=== PATIENT | male | born 1945 | race African-American/Black ===

== ENCOUNTER 2020-01-26 10:39 | Emergency (ER) | payer OTHER ==
[2020-01-26 10:47] VITALS: BP 152/72
--- NOTE | 2020-01-26 10:53 | ER Document Report ---
HPI - HPI Time Seen by Provider: 01/26/20 10:47 Pain Level: 4 - CONSTITUTIONAL Notes: 74-year-old male who is a dialysis patient presents emergency room with complaints of right hand and right wrist pain after a FOOSH injury at 930 this morning. Patient states that he was picking up a bag and lost his bearings and fell and broke his fall with his right hand and right wrist. Denies any other area of injury. Denies hitting head or change in level consciousness. Has not tried any [id number]-[id number] medications. Reports pain is 1 out of 5. No qzvd-frc-qehetvw medications have been tried. No icing or heat. Denies fevers, chills, chest pain,palpitations, shortness of breath, dyspnea, nausea, vomiting, diarrhea, abdominal pain, hematuria,blurred vision, double vision, loss of vision, speech changes, LH, dizziness, syncope, headaches, wheezing, ST, URI, neck pain, weakness, bowel or bladder dysfunction, saddle anesthesia, numbness or tingling in bilateral upper or lower extremities equally, muscle paralysis, weakness in bilateral upper or lower extremities equally or rash. Denies IV drug use. MEDICATIONS: I agree with the patient medications as charted by the RN. ALLERGIES: I agree with the allergies as charted by the RN. PAST MEDICAL HISTORY/PAST SURGICAL HISTORY: Reviewed and agree as charted by RN. SOCIAL HISTORY: Reviewed and agree as charted by RN. FAMILY HISTORY: No significant familial comorbid conditions directly related to patient complaint EXAM: Reviewed vital signs as charted by RN. REVIEW OF SYSTEMS:reviewed vital signs by RN CONSTITUTIONAL : Denies fever, chills, or sweats. Denies recent illness. EENT: Denies eye, ear, throat, or mouth pain or symptoms. Denies nasal or sinus congestion or discharge. Denies throat, tongue, or mouth swelling or difficulty swallowing. CARDIOVASCULAR: Denies chest pain. Denies palpitations or racing or irregular heart beat. Denies ankle edema. RESPIRATORY: Denies cough, cold, or chest congestion. Denies shortness of breath, difficulty breathing, or wheezing. GASTROINTESTINAL: Denies abdominal pain or distention. Denies nausea, vomiting, or diarrhea. Denies blood in vomitus, stools, or per rectum. Denies black, tarry stools. Denies constipation. GENITOURINARY: Denies difficulty urinating, painful urination, burning, frequency, blood in urine, or discharge. MUSCULOSKELETAL: Reports right hand and wrist pain. denies back or neck pain or stiffness. Denies joint pain or swelling. SKIN: Denies rash, lesions or sores. HEMATOLOGIC : Denies easy bruising or bleeding. LYMPHATIC: Denies swollen, enlarged glands. NEUROLOGICAL: Denies confusion or altered mental status. Denies passing out or loss of consciousness. Denies dizziness or lightheadedness. Denies headache. Denies weakness or paralysis or loss of use of either side. Denies problems with gait or speech. Denies sensory loss, numbness, or tingling. Denies seizures. PSYCHIATRIC: Denies anxiety or stress. Denies depression, suicidal ideation, or homicidal ideation. ALL OTHER SYSTEMS REVIEWED AND NEGATIVE. Dictation was performed using [employer] recognition software PHYSICAL EXAMINATION: GENERAL: Well-appearing, well-nourished and in no acute distress. HEAD: Atraumatic, normocephalic. EYES: Pupils equal round and reactive to light, extraocular movements intact, sclera anicteric, conjunctiva are normal. ENT: Nares patent, oropharynx clear without exudates. Moist mucous membranes. NECK: Normal range of motion, supple without lymphadenopathy LUNGS: Breath sounds clear to auscultation bilaterally and equal. No wheezes rales or rhonchi. HEART: Regular rate and rhythm without murmurs ABDOMEN: Soft, nontender, nondistended abdomen. No guarding, no rebound. No masses appreciated. Musculoskeletal: Normal range of motion, no pitting or edema. No cyanosis. Noted right wrist pain with flexion, extension, inversion, eversion of wrist. digits in right and left with full aprom. 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 Snuffbox tenderness positive on right. radial pulses + 2 BUE equally. Negative kanavels sign. No open wounds or drainage from wrist. Tenderness on volar second and third metatarsal bone no vascular compromise.No body crepitus or focal area of TTP. Limited ROM with flexion, extension, ulnar/radial deviation . Motor and sensory function of ulnar, radial, medial nerves intact bilaterally and equally. NEUROLOGICAL: Cranial nerves grossly intact. Normal speech, normal gait. Normal sensory, motor exams PSYCH: Normal mood, normal affect. SKIN: Warm, Dry, normal turgor, no rashes or lesions noted. Past Medical History - General Information source: Patient - Social History Smoking Status: Current Every Day Smoker Chew tobacco use (# tins/day): Yes Frequency of alcohol use: None Drug Abuse: None Family History: None Pulmonary Medical History: Reports: Hx COPD Endocrine Medical History: Reports: Hx Diabetes Mellitus Type 2 GI Medical History: Reports: Hx Gastroesophageal Reflux Disease Past Surgical History: Reports: Hx Abdominal Surgery - Hernia Repair, Hx Cardiac Surgery - AVG Aneurysm repair, Hx Rectal Surgery - Hemorroid banding, Hx Urinary Tract Surgery - Renal Artery angioplasty, Hx Vascular Surgery - Fistula x2 - Immunizations Hx Diphtheria, Pertussis, Tetanus Vaccination: Yes Vertical Provider Document - CONSTITUTIONAL Agree With Documented VS: Yes Exam Limitations: No Limitations General Appearance: WD/WN - INFECTION CONTROL TRAVEL OUTSIDE OF THE [place] IN LAST 30 DAYS: No Course - Re-evaluation Re-evalutation: 01/26/20 10:55 Afebrile vital stable no distress. Nurses notes reviewed. X-ray of right hand and wrist shows negative for any acute fracture dislocation or foreign body. Patient placed in a cock-up splint for the right hand. Please follow-up with family program specialist and primary care provider within the next 24 to 48 hours consent by patient given to place right cock-up splint,. cms intact, sensory motor function intact in bilateral upper extremities prior to splint application fiberglass splint placed without incident. cms intact 20 minutes after splint application. Splint is in good alignment. Bilateral upper extremities with motor and sensory function intact 20 minutes after application. Pt stated that splint felt comfortable. Take Tylenol as needed for pain control. After performing a Medical Screening Examination, I estimate there is LOW risk for OPEN FRACTURE, COMPARTMENT SYNDROME, DEEP VENOUS THROMBOSIS, ACUTE TENDON RUPTURE, or NEUROVASCULAR INJURY thus I consider the discharge disposition reasonable. I have reevaluated this patient multiple times and no significant life threatening changes are noted. The patient and I have discussed the diagnosis and risks, and we agree with discharging home to closely follow-up with their primary doctor or the referral orthopedist with the understanding that symptoms and presentations can change. We also discussed returning to the Emergency Department immediately if new or worsening symptoms occur. We have discussed the symptoms which are most concerning (e.g., changing or worsening pain, numbness, weakness) that necessitate immediate return 01/26/20 11:38 - Vital Signs Vital signs: Temp Pulse Resp BP Pulse Ox 98.8 F 79 18 152/72 H 95 01/26/20 10:44 01/26/20 10:44 01/26/20 10:44 01/26/20 10:44 01/26/20 10:44 Discharge - Discharge Clinical Impression: Right wrist sprain Qualifiers: Encounter type: initial encounter Qualified Code(s): S63.501A - Unspecified sprain of right wrist, initial encounter Sprain of right hand Qualifiers: Encounter type: initial encounter Qualified Code(s): S63.91XA - Sprain of unspecified part of right wrist and hand, initial encounter Condition: Stable Disposition: HOME, SELF-CARE Instructions: Ice & Elevation ([facility]), Sprain ([facility]), Wrist Sprain ([facility]) Additional Instructions: Your x-rays were negative today for any acute fractures. Advised to use cock up splint to keep and immobilize. Please keep hand and wrist elevated above the level of heart to reduce swelling. You can take Tylenol for pain control. Apply ice 20 minutes on 20 minutes off several times a day and switch over to heat tomorrow in the same fashion. Please follow-up with family program specialist and primary care provider within the next 24 to 48 hours as needed Return immediately for any new or worsening symptoms. Follow up with primary care provider, call tomorrow to make followup appointment. Referrals: JOSE HILTON MD [ACTIVE STAFF] - Follow up as needed ANAHI WRAY MD [COMMUNITY BASED STAFF] - Follow up as needed
[2020-01-26] MEDS ORDERED: ACETAMINOPHEN 325 MG TABLET PO ONE (10:55)
--- NOTE | 2020-01-26 11:26 | RADIOLOGY REPORT (SQ) ---
EXAM DESCRIPTION: HAND RIGHT 3 VIEWS; WRIST RIGHT 3 VIEWS IMAGES COMPLETED DATE/TIME: 01/26/2020 11:11 am REASON FOR STUDY: FOOSH injury at 0930, R hand/wrist pain COMPARISON: None. NUMBER OF VIEWS: Seven views. TECHNIQUE: AP, lateral, and oblique radiographic images acquired of the right hand and right wrist. LIMITATIONS: None. FINDINGS: MINERALIZATION: Osteopenia. BONES: No acute fracture or dislocation. No worrisome bone lesions. Normal alignment. SOFT TISSUES: Vascular calcifications. OTHER: No other significant finding. IMPRESSION: No acute findings. TECHNICAL DOCUMENTATION: JOB ID: [id number] 2010 [employer]- All Rights Reserved Reading location - IP[facility]workstation name: [email or web address]
--- NOTE | 2020-01-26 11:26 | RADIOLOGY REPORT (SQ) ---
EXAM DESCRIPTION: HAND RIGHT 3 VIEWS; WRIST RIGHT 3 VIEWS IMAGES COMPLETED DATE/TIME: 01/26/2020 11:11 am REASON FOR STUDY: FOOSH injury at 0930, R hand/wrist pain COMPARISON: None. NUMBER OF VIEWS: Seven views. TECHNIQUE: AP, lateral, and oblique radiographic images acquired of the right hand and right wrist. LIMITATIONS: None. FINDINGS: MINERALIZATION: Osteopenia. BONES: No acute fracture or dislocation. No worrisome bone lesions. Normal alignment. SOFT TISSUES: Vascular calcifications. OTHER: No other significant finding. IMPRESSION: No acute findings. TECHNICAL DOCUMENTATION: JOB ID: [id number] 2010 [employer]- All Rights Reserved Reading location - IP[facility]workstation name: [email or web address]
== END 2020-01-26 12:00 | disposition home or self-care (01) ==
LOC: ER 10:39
DX: S63.91XA Sprain of unspecified part of right wrist and hand, initial encounter (principal); S63.501A Unspecified sprain of right wrist, initial encounter; M79.641 Pain in right hand; M25.531 Pain in right wrist; W18.39XA Other fall on same level, initial encounter; Y93.89 Activity, other specified; F17.200 Nicotine dependence, unspecified, uncomplicated; E11.9 Type 2 diabetes mellitus without complications; J44.9 Chronic obstructive pulmonary disease, unspecified
CPT/HCPCS: 99283; 73130; 73110; A9270